=== PATIENT | female | born 1990 | race Caucasian/White ===

== ENCOUNTER → 2018-01-14 11:48 | Emergency (ER) | payer BC ==
[~2018-01-14] VITALS: Ht 172.7 cm; Wt 122.5 kg
[~2018-01-14 11:48] MED LIST: HALOPERIDOL LACT 5 MG/ML VIAL. IVP ONE; HYDROmorphone PF 1 MG/ML DISP.SYRIN IV ONE; HYDROmorphone PF 2 MG/ML VIAL IV ONE; ONDANSETRON PF 4 MG/2 ML VIAL. IV ONE
[2018-01-14 14:45] VITALS: BP 118/72
--- NOTE | 2018-01-14 17:25 | ED.ADGEN ---
Past History Past Medical History: Migraines Past Surgical History: Tonsillectomy Alcohol Use: Occasionally Drug Use: None Adult General Chief Complaint Chief Complaint Back pain [facility] HPI Patient is a 27-year-old female employed as a [employer] who presents with worsening of her chronic low back pain. Patient reports intermittent back pain for 2 months with significant worsening over the past 2 days. Patient was evaluated by her PCP 3 days ago and prescribed Motrin week and a muscle relaxer which she has been taking. Symptoms are gradually worse over the weekend. Patient was of reevaluated by her primary care physician prior to today's visit and given an injection of Toradol with limited relief. Patient has also been treated during the past 3 months by her chiropractor who has performed XRs. patient has not had 4 advanced imaging studies. Pain is described moderate to severe, sharp located in right lower paravertebral region with radiation to right leg below the knee. Patient reports paresthesias of lower extremities. Pain is significantly worse with palpation movement and weightbearing and ambulation. no loss of bowel or bladder function. No motor weakness. No other acute symptoms or complaints.[] Review of Systems Review of Systems Review of symptoms as per HPI[] All other systems were reviewed and found to be within normal limits, except as documented in this note. Current Medications Current Medications Current Medications Medications (Trade) Dose Ordered Sig/[facility] Start Time Stop Time Status Last Admin Dose Admin Fentanyl Citrate (Fentanyl 2ml Vial) 75 mcg 1X ONCE 01/14/18 12:45 01/14/18 12:46 DC 01/14/18 12:46 75 MCG Haloperidol Lactate (Haldol) 2.5 mg 1X ONCE 01/14/18 13:15 01/14/18 13:16 DC 01/14/18 13:25 2.5 MG Hydromorphone HCl (Dilaudid) 1 mg 1X ONCE 01/14/18 13:30 01/14/18 13:31 DC 01/14/18 13:26 1 MG Ondansetron HCl (Zofran) 8 mg 1X ONCE 01/14/18 12:45 01/14/18 12:46 DC 01/14/18 12:45 8 MG Allergies Allergies Allergies Coded Allergies Type Severity Reaction Last Updated Verified No Known Drug Allergies 01/14/18 No Physical Exam Physical Exam Constitutional: moderate distress secondary to pain, anxious, tearful,laying on left side. [] HENT: Normocephalic, atraumatic, bilateral external ears normal, oropharynx moist, no oral exudates, nose normal. [] Eyes: PERRLA, EOMI, conjunctiva normal, no discharge. [] Neck: Normal range of motion, no tenderness, supple, no stridor. [] Cardiovascular:Heart rate regular rhythm, no murmur [] Lungs & Thorax: Bilateral breath sounds clear to auscultation [] Abdomen: Bowel sounds normal, soft, no tenderness, no masses, no pulsatile masses. [] Skin: Warm, dry, no erythema, no rash. [] Back: Lower paravertebral back pain, pain over upper sacrum region. Positive SLR on right. Negative SLR on left. [] Extremities: No tenderness, no cyanosis, no clubbing, ROM intact, no edema. [] Neurologic: Alert and oriented X 3, lower extremities, no motor weakness/loss of sensation, lower reflexes 1+ and symmetric,. [] Current Patient Data Vital Signs Vital Signs Date Time Temp Pulse Resp B/P (MAP) Pulse Ox O2 Delivery O2 Flow Rate FiO2 01/14/18 14:45 89 20 118/72 (87) 94 Room Air 01/14/18 13:20 3.0 01/14/18 11:48 98.3 EKG EKG [] Radiology/Procedures Radiology/Procedures [] Course & Med Decision Making Course & Med Decision Making Pertinent Labs and Imaging studies reviewed. (See chart for details) [Severe right lower lumbar paravertebral pain with radiculopathy. No neurologic deficits on exam. Repeat pain medications given with symptomatic relief. Patient resting comfortably, sleeping, is able to lay on her back and rollover. Discussed with patient and patient's primary care physician definitive and itching of spine to direct care. Unfortunately, there is not an MRI available at this facility. Patient's primary care physician to coordinate and arrange outpatient testing. prescription for pain medication, muscle relaxants in steroid course provided. Further management per the patient's PCP.] Final Impression Final Impression [1. Acute lumbar radiculopathy] Problems: Dragon Disclaimer Dragon Disclaimer This electronic medical record was generated, in whole or in part, using a voice recognition dictation system. MARC DURHAM DO Jan 14, 2018 17:25
== END | disposition home or self-care (01) ==
LOC: ER 11:48
DX: M54.16 Radiculopathy, lumbar region (principal); G89.29 Other chronic pain; G43.909 Migraine, unspecified, not intractable, without status migrainosus
CPT/HCPCS: 96374; 96375; 96376; 99284; J1170; J1630; J2405; J3010

== ENCOUNTER → 2018-06-24 | Outpatient (CLI) | payer BC ==
[2018-01-14 14:45] VITALS: BP 118/72
[2018-06-24 09:15] LABS: BASO # 0.1 x10^3/uL (0.0-0.2); BASO % 1 % (0-3); EOS # 0.4 x10^3/uL (0.0-0.7); EOS % 5 % (0-3); HEMATOCRIT 43.4 % (36.0-47.0); HEMOGLOBIN 14.4 g/dL (12.0-15.5); LYMPH # 3.5 x10^3/uL (1.0-4.8); LYMPH % 36 % (24-48); MEAN CORPUSCULAR HEMOGLOBIN 31 pg (25-35); MEAN CORPUSCULAR HGB CONC 33 g/dL (31-37); MEAN CORPUSCULAR VOLUME 93 fL (79-100); MONO # 0.7 x10^3/uL (0.0-1.1); MONO % 7 % (0-9); NEUT % 51 % (31-73); PLATELET COUNT 292 x10^3/uL (140-400); RED BLOOD COUNT 4.66 x10^6/uL (3.50-5.40); RED CELL DISTRIBUTION WIDTH 13.8 % (11.5-14.5); WHITE BLOOD COUNT 9.7 x10^3/uL (4.0-11.0)
[2018-06-24 09:29] LABS: ALBUMIN 3.7 g/dL (3.4-5.0); ALBUMIN/GLOBULIN RATIO 0.9 (1.0-1.7); CALCIUM 9.7 mg/dL (8.5-10.1); CREATININE 0.8 mg/dL (0.6-1.0); GFR 84.8; POTASSIUM 4.5 mmol/L (3.5-5.1); TOTAL BILIRUBIN 0.4 mg/dL (0.2-1.0); TOTAL PROTEIN 7.6 g/dL (6.4-8.2)
[2018-06-25 03:11] LABS: HEMOGLOBIN A1C 5.5 % (4.8-5.6)
[2018-06-26 11:28] LABS: THYROID STIM HORMONE (TSH) 1.173 uIU/mL (0.358-3.740)
== END | disposition home or self-care (01) ==
LOC: LAB 08:09
PROVIDERS: ATTEND Obstetrics & Gynecology
DX: E28.2 Polycystic ovarian syndrome (principal); G43.909 Migraine, unspecified, not intractable, without status migrainosus
CPT/HCPCS: 36415; 80053; 80061; 83036; 83525; 84443; 85025

== ENCOUNTER → 2018-10-30 | Outpatient (CLI) | payer BC ==
[2018-01-14 14:45] VITALS: BP 118/72
[2018-10-30 19:09] LABS: DHEA SO4 291.2 ug/dL (84.8-378.0)
[2018-10-30 20:08] LABS: HEMOGLOBIN A1C 5.8 % (4.8-5.6)
[2018-10-31 09:13] LABS: INSULIN LEVEL 11.6 uIU/mL (2.6-24.9)
[2018-11-02 08:11] LABS: TESTOSTERONE FREE 0.32 ng/dL (0.10-0.85); TESTOSTERONE TOTAL 45 ng/dL (8-48)
== END | disposition home or self-care (01) ==
LOC: LAB 07:37
DX: E28.2 Polycystic ovarian syndrome (principal)
CPT/HCPCS: 36415; 80061; 82627; 83036; 83525; 84402; 84403

== ENCOUNTER → 2019-10-22 | Outpatient (CLI) | payer BC ==
[2018-01-14 14:45] VITALS: BP 118/72
--- NOTE | 2019-10-22 16:31 | RAD ---
Chest radiograph 10/22/2019 12:00 AM INDICATION: Cough, sinus drainage COMPARISON: None available TECHNIQUE: Frontal and lateral views of the chest are provided. FINDINGS: The cardiomediastinal silhouette is within normal limits. There are no pleural effusions. There is no pulmonary vascular congestion. There is no pneumothorax. Bronchial wall thickening suggestive of bronchitis. No focal airspace consolidation. No significant osseous abnormality is identified. IMPRESSION: Bronchitis without focal airspace consolidation. Electronically signed by: Ebony Noel MD (10/22/2019 4:28 PM) [id number]
== END | disposition home or self-care (01) ==
LOC: PMG 15:54
PROVIDERS: ATTEND Registered Nurse
DX: J40 Bronchitis, not specified as acute or chronic (principal)
CPT/HCPCS: 71046

== ENCOUNTER → 2021-05-19 | Outpatient (CLI) | payer OTHER ==
[2018-01-14 14:45] VITALS: BP 118/72
== END ==
LOC: LAB 10:01
PROVIDERS: ATTEND Nurse Practitioner Women's Health
DX: N92.6 Irregular menstruation, unspecified (principal)
CPT/HCPCS: 36415; 83001

== ENCOUNTER → 2021-06-06 | Outpatient (CLI) | payer OTHER ==
[2018-01-14 14:45] VITALS: BP 118/72
== END ==
LOC: LAB 17:49
PROVIDERS: ATTEND Nurse Practitioner Women's Health
DX: N92.6 Irregular menstruation, unspecified (principal)
CPT/HCPCS: 36415; 84144